=== PATIENT | female | born 1960 | race African-American/Black ===

== ENCOUNTER 2016-07-16 07:05 | Emergency (ER) | payer MEDICAID, OTHER ==
[~2016-07-16] VITALS: Ht 167.6 cm; Wt 72.4 kg
[2016-07-16] MEDS ORDERED: KETOROLAC 60MG/2ML VIAL IM ONE (11:00)
[2016-07-16 11:19] VITALS: BP 114/40
== END 2016-07-16 11:37 | disposition home or self-care (01) ==
LOC: ER 07:06
DX: S23.3XXA Sprain of ligaments of thoracic spine, initial encounter (principal); F17.210 Nicotine dependence, cigarettes, uncomplicated; Z90.710 Acquired absence of both cervix and uterus; X58.XXXA Exposure to other specified factors, initial encounter; Y93.89 Activity, other specified; Y92.89 Other specified places as the place of occurrence of the external cause; Y99.8 Other external cause status
CPT/HCPCS: 96372; 99283; J1885

== ENCOUNTER 2019-09-04 07:17 | Emergency (ER) | payer SELFPAY ==
[~2019-09-04] VITALS: Ht 167.6 cm; Wt 75.0 kg
[2019-09-04 07:43] VITALS: BP 103/49
[2019-09-04] MEDS ORDERED: KETOROLAC 60MG/2ML VIAL IM ONE (08:00)
[2019-09-04] MEDS ORDERED: DEXAMETHASONE 4MG/ML 1ML VIAL IM ONE (08:00)
[2019-09-04] MEDS ORDERED: DEXAMETHASONE 4MG/ML 1ML VIAL ONE (08:14)
== END 2019-09-04 08:54 | disposition home or self-care (01) ==
LOC: ER 07:17
DX: M54.9 Dorsalgia, unspecified (principal); X50.1XXA Overexertion from prolonged static or awkward postures, initial encounter; Y93.89 Activity, other specified; Y92.9 Unspecified place or not applicable; Z90.710 Acquired absence of both cervix and uterus
CPT/HCPCS: 96372; 99284; J1100; J1885